=== PATIENT | male | born 1955 | race American Indian/Alaskan Native ===

== ENCOUNTER 2017-09-04 22:03 | Inpatient (IN) | payer OTHER ==
[2017-09-04] MEDS ORDERED: NARCAN 2 MG/2 ML ONE (22:07)
[2017-09-04] MEDS ORDERED: ZOFRAN ONE (22:09)
--- NOTE | 2017-09-04 22:48 | XRay Report ---
FINAL REPORT PROCEDURE: XR CHEST 1V AP TECHNIQUE: Chest radiograph anteroposterior view. CPT 18127 HISTORY: sob COMPARISON: No prior studies are available for comparison. FINDINGS: Heart: Normal. Mediastinum/Vessels: Normal. Lungs/Pleural space: Moderate COPD with fibrosis. No effusion or pneumothorax. Bony thorax: No acute osseous abnormality. Life support devices: None. IMPRESSION: COPD with fibrosis. No acute infiltrate, effusion or pneumothorax.
[2017-09-04 22:52] LABS: Hematocrit 47.1 % (35.5-45.6); Hemoglobin 15.4 gm/dl (11.8-15.2); Mean Corpuscular HGB Conc 33 % (32-34); Mean Corpuscular Hemoglobin 31 pg (28-32); Mean Corpuscular Volume 94 fl (84-94); Platelet Count 284 K/mm3 (140-440); Red Cell Distribution Width 14.6 % (13.2-15.2)
--- NOTE | 2017-09-04 22:59 | Emergency Department Report ---
ED General Adult HPI - General Chief complaint: Overdose Stated complaint: RESPIRATORY DISTRESS Time Seen by Provider: 09/04/17 22:14 Source: EMS Mode of arrival: Stretcher Limitations: Altered Mental Status - History of Present Illness Initial comments: Patient presents to emergency department via EMS for severe respiratory distress. Per EMS upon their arrival to patient's oxygenation level was approximately 68%. Patient was ventilated and in route an attempt was made to intubate the patient without success. Per EMS the patient's family stated he was just recently diagnosed with some lung condition. Severity scale (0 -10): 0 - Related Data Allergies Allergy/AdvReac Type Severity Reaction Status Date / Time No Known Allergies Allergy Unverified 09/04/17 22:17 ED Review of Systems ROS: Stated complaint: RESPIRATORY DISTRESS Other details as noted in HPI Comment: Unobtainable due to pts medical conditions ED Past Medical Hx - Past Medical History Hx Hypertension: Yes Hx COPD: Yes - Surgical History Past Surgical History?: No - Social History Smoking Status: Current Every Day Smoker Substance Use Type: Alcohol ED Physical Exam - General Limitations: Altered Mental Status General appearance: obtunded - Head Head exam: Present: atraumatic, normocephalic - Eye Eye exam: Present: normal appearance, PERRL, EOMI, other (pupils were pinpoint but reactive to light) Pupils: Present: normal accommodation - ENT ENT exam: Present: mucous membranes dry - Neck Neck exam: Present: other (no carotid bruits, supple) - Respiratory Respiratory exam: Present: wheezes - Cardiovascular Cardiovascular Exam: Present: regular rate, normal rhythm - GI/Abdominal GI/Abdominal exam: Present: soft, normal bowel sounds. Absent: distended, guarding, rebound - Extremities Exam Extremities exam: Absent: pedal edema - Neurological Exam Neurological exam: Present: other (initially patient was obtunded and thus neurological exam could not be completed) - Psychiatric Psychiatric exam: Present: other (not able to assess due to the patient's condition) - Skin Skin exam: Present: dry ED Course Vital Signs 09/04/17 09/04/17 09/04/17 22:00 22:10 22:17 Temperature Pulse Rate 101 H 101 H 99 H Respiratory 27 H 24 17 Rate Blood Pressure 162/103 154/93 Blood Pressure [Right] O2 Sat by Pulse 96 98 Oximetry 09/04/17 09/04/17 09/04/17 22:20 22:26 22:29 Temperature 98.9 F Pulse Rate 97 H 84 99 H Respiratory 24 17 17 Rate Blood Pressure 154/93 154/93 Blood Pressure 154/93 [Right] O2 Sat by Pulse 90 80 L 99 Oximetry 09/04/17 09/04/17 09/04/17 22:30 22:32 22:36 Temperature Pulse Rate 75 81 Respiratory 18 16 23 Rate Blood Pressure 136/68 136/68 Blood Pressure [Right] O2 Sat by Pulse 100 100 Oximetry 09/04/17 09/04/17 09/04/17 22:40 22:45 22:50 Temperature Pulse Rate 82 78 77 Respiratory 25 H 12 22 Rate Blood Pressure 136/68 144/75 144/75 Blood Pressure [Right] O2 Sat by Pulse 100 100 100 Oximetry 09/04/17 09/04/17 09/04/17 22:56 23:00 23:06 Temperature Pulse Rate 79 92 H 81 Respiratory 21 14 18 Rate Blood Pressure 144/75 141/88 141/88 Blood Pressure [Right] O2 Sat by Pulse 100 100 100 Oximetry 09/04/17 09/04/17 09/04/17 23:10 23:15 23:20 Temperature Pulse Rate 88 114 H 78 Respiratory 17 11 L 19 Rate Blood Pressure 141/88 133/74 133/74 Blood Pressure [Right] O2 Sat by Pulse 100 100 100 Oximetry 09/04/17 09/04/17 09/04/17 23:26 23:30 23:36 Temperature Pulse Rate 83 104 H 83 Respiratory 18 15 21 Rate Blood Pressure 133/74 131/74 131/74 Blood Pressure [Right] O2 Sat by Pulse 100 100 100 Oximetry 09/04/17 09/04/17 09/04/17 23:40 23:45 23:50 Temperature Pulse Rate 85 82 82 Respiratory 14 17 16 Rate Blood Pressure 131/74 124/71 124/71 Blood Pressure [Right] O2 Sat by Pulse 100 100 100 Oximetry 09/04/17 09/05/17 09/05/17 23:56 00:00 00:06 Temperature Pulse Rate 75 74 70 Respiratory 17 22 19 Rate Blood Pressure 124/71 124/69 124/69 Blood Pressure [Right] O2 Sat by Pulse 100 100 100 Oximetry 09/05/17 09/05/17 09/05/17 00:10 00:15 00:20 Temperature Pulse Rate 78 70 84 Respiratory 17 15 19 Rate Blood Pressure 124/69 121/70 121/70 Blood Pressure [Right] O2 Sat by Pulse 100 100 100 Oximetry 09/05/17 09/05/17 09/05/17 00:26 00:30 00:36 Temperature Pulse Rate 80 74 80 Respiratory 15 14 14 Rate Blood Pressure 121/70 127/68 127/68 Blood Pressure [Right] O2 Sat by Pulse 100 100 100 Oximetry 09/05/17 09/05/17 09/05/17 00:40 00:45 00:50 Temperature Pulse Rate 69 81 80 Respiratory 25 H 19 18 Rate Blood Pressure 127/68 126/75 126/75 Blood Pressure [Right] O2 Sat by Pulse 100 100 100 Oximetry 09/05/17 09/05/17 09/05/17 00:56 01:00 01:10 Temperature Pulse Rate 81 80 74 Respiratory 26 H 22 18 Rate Blood Pressure 126/75 134/75 134/75 Blood Pressure [Right] O2 Sat by Pulse 100 100 100 Oximetry 09/05/17 09/05/17 09/05/17 01:20 01:30 01:40 Temperature Pulse Rate 86 93 H 83 Respiratory 13 12 13 Rate Blood Pressure 128/74 121/79 121/79 Blood Pressure [Right] O2 Sat by Pulse 99 96 99 Oximetry 09/05/17 09/05/17 09/05/17 01:50 01:56 02:00 Temperature Pulse Rate 91 H 87 86 Respiratory 13 23 12 Rate Blood Pressure 121/68 121/68 119/71 Blood Pressure [Right] O2 Sat by Pulse 99 99 97 Oximetry 09/05/17 09/05/17 09/05/17 02:06 02:10 02:15 Temperature Pulse Rate 90 88 82 Respiratory 12 15 23 Rate Blood Pressure 119/71 119/71 125/72 Blood Pressure [Right] O2 Sat by Pulse 100 100 99 Oximetry 09/05/17 09/05/17 09/05/17 02:20 02:26 02:30 Temperature Pulse Rate 84 77 75 Respiratory 17 21 21 Rate Blood Pressure 125/72 125/72 110/64 Blood Pressure [Right] O2 Sat by Pulse 99 99 96 Oximetry 09/05/17 09/05/17 09/05/17 02:36 02:40 02:45 Temperature Pulse Rate 80 90 105 H Respiratory 16 12 12 Rate Blood Pressure 110/64 110/64 131/85 Blood Pressure [Right] O2 Sat by Pulse 100 100 95 Oximetry 09/05/17 02:50 Temperature Pulse Rate 91 H Respiratory 14 Rate Blood Pressure 131/85 Blood Pressure [Right] O2 Sat by Pulse 100 Oximetry ED Medical Decision Making - Lab Data Result diagrams: 09/04/17 22:28 09/04/17 22:28 - Medical Decision Making Upon arrival to the ED the patient was placed on a cardiac and pulse ox monitoring Patient was bagged with supplemental oxygen A nasal trumpet was placed Patient was given Narcan After given Narcan there was some arousal Oxygen levels improved with bagging. Patient was placed on a Ventimask and sats have remained greater than 94 since Neurological exam was done after sufficient oxygenation on the patient with cranial nerves being intact 2 through 12, no motor or sensory deficits Patient endorses to drinking alcohol today and smoking several cigarettes Spoke with Dr. Warren at 3:14 AM on 09/05/2017. I was given permission to keep the patient at our facility and there is no need to transfer the patient to [facility] Critical care attestation.: If time is entered above; I have spent that time in minutes in the direct care of this critically ill patient, excluding procedure time. ED Disposition Clinical Impression: Hypoxia, Respiratory distress Disposition: DC-09 OP ADMIT IP TO THIS HOSP Is pt being admited?: Yes Does the pt Need Aspirin: No Condition: Fair Referrals: JONNA ROSEN MD [Primary Care Provider] - 3-5 Days Time of Disposition: 01:58
[2017-09-04 23:14] LABS: Bilirubin,Urine NEG (Negative); Blood,Urine SM (Negative); Color,Urine Straw (Yellow); Protein,Urine <15 mg/dL mg/dL (Negative); RBC,Urine < 1.0 /HPF (0.0-6.0); Urobilinogen,Urine < 2.0 mg/dL (<2.0); WBC,Urine < 1.0 /HPF (0.0-6.0)
[2017-09-04 23:20] LABS: Alanine Aminotransferase 16 units/L (7-56); Albumin 3.6 g/dL (3.9-5); BUN/Creatinine Ratio 14; Blood Urea Nitrogen 10 mg/dL (9-20); Calcium 8.6 mg/dL (8.4-10.2); Hemolysis Index 46
[2017-09-04 23:22] LABS: Amphetamine Screen,Urine PRESUMPTIVE NEGATIVE; Benzodiazepines Screen,Urine PRESUMPTIVE NEGATIVE; Cannabinoid Screen,Urine PRESUMPTIVE NEGATIVE; Cocaine Screen,Urine PRESUMPTIVE NEGATIVE; Methadone Screen,Urine PRESUMPTIVE NEGATIVE; Opiate Screen,Urine PRESUMPTIVE NEGATIVE
[2017-09-04 23:55] LABS: Band Neutrophils # (Manual) 0.1 K/mm3; Basophils % (Manual) 0 % (0.0-1.8); Total Cells Counted 100
[2017-09-04 23:56] LABS: Anisocytosis 1+; Stomatocytes Few
[2017-09-05] MEDS ORDERED: ZOFRAN IV ONE (01:43)
[2017-09-05] MEDS ORDERED: NARCAN 2 MG/2 ML IV ONE (01:43)
[2017-09-05] MEDS ORDERED: LEVAQUIN 750MG/150ML 750 MG/150 ML BAG IV ONE (02:13)
[2017-09-05] MEDS ORDERED: TYLENOL PO PRN (03:44)
[2017-09-05] MEDS ORDERED: ZOFRAN IV PRN (03:44)
[2017-09-05] MEDS ORDERED: SODIUM CHLORIDE FLUSH SYRINGE 10 ML IV PRN (03:44)
--- NOTE | 2017-09-05 03:53 | History and Physical Report ---
History of Present Illness Date of examination: 09/05/17 History of present illness: Juan Daniel Pemberton history of hypertension, COPD since emergency room because he complained of shortness of breath yesterday. EMS was called to his bowels, he was found to be in respiratory distress with a saturation in the 60s. EMS tried to intubate him in the field without success. In the emergency room he was given Narcan, placed on high flow oxygen, currently doing well. Pain of a cough productive of white phlegm, no fever or chills. He has pain on the side of the lateral thoracic region, described as a sharp pain, intermittent in nature for a few seconds, no radiation, cannot identify exacerbating or relieving factors, intensity/10 Review of systems Constitutional: no weight loss, chills Ears, eyes, nose, mouth and throat: no nasal congestion, no nasal discharge, no sinus pressure, no vision change, no red eye. Neck: No neck pain or rigidity. Cardiovascular: no chest pain, palpitations Respiratory: +cough, shortness of breath Gastrointestinal: no abdominal pain, hematochezia Genitourinary : no dysuria, frequency , no hematuria Musculoskeletal: no joint swelling or muscle ache Integumentary: no rash, no pruritis Neurological: no parathesias, no numbness, no focal weakness Endocrine: no cold or heat intolerance, no polyuria or polydipsia Hematologic/Lymphatic: no easy bruising, no easy bleeding, no gland swelling Allergic/Immunologic: no urticaria, no angioedema. PAST MEDICAL HISTORY: Hypertension, COPD PAST SURGICAL HISTORY: Foot surgery SOCIAL HISTORY: Tobacco abuse, denies alcohol or drugs FAMILY HISTORY: Hypertension Medications and Allergies Allergies Allergy/AdvReac Type Severity Reaction Status Date / Time No Known Allergies Allergy Unverified 09/04/17 22:17 Exam - Physical Exam Narrative exam: Gen. appearance: Patient lying in bed, no apparent distress HEENT: Normocephalic, atraumatic, pupils equally round and reactive to light, extraocular movement intact, and no sclericterus,. No JVD or thyromegaly or nodule,neck supple, no carotid bruit ,mucous membranes moist, no exudate or erythema Heart: S1, S2, regular rate and rhythm Lungs: Clear to auscultation bilaterally, breathing comfortable Abdomen: Positive bowel sounds, nontender, nondistended, no organomegaly Extremity: No edema, cyanosis, clubbing Skin: No rash, nodules, warm, dry Neuro: Oriented 3, cranial nerves II-12 intact, speech is fluent, motor and sensory intact - Constitutional Vitals: Temp Pulse Resp BP Pulse Ox 98.9 F 106 H 11 L 116/73 96 09/04/17 22:29 09/05/17 03:20 09/05/17 03:20 09/05/17 03:20 09/05/17 03:20 Results - Labs CBC & Chem 7: 09/04/17 22:28 09/04/17 22:28 Labs: Abnormal lab results 09/04/17 09/04/17 09/04/17 Range/Units 22:28 22:28 22:29 WBC 11.5 H (4.5-11.0) K/mm3 Hgb 15.4 H (11.8-15.2) gm/dl Hct 47.1 H (35.5-45.6) % Seg Neutrophils # Man 8.1 H (1.8-7.7) K/mm3 Eosinophils # (Manual) 0.5 H (0.0-0.4) K/mm3 Sodium 133 L (137-145) mmol/L Chloride 95.4 L (98-107) mmol/L Carbon Dioxide 20 L (22-30) mmol/L Creatinine 0.7 L (0.8-1.5) mg/dL Albumin 3.6 L (3.9-5) g/dL Ur Specific [place] 1.001 L (1.003-1.030) - Imaging and Cardiology EKG: image reviewed Chest x-ray: image reviewed Assessment and Plan Assessment COPD exacerbation, rule out PE Hypertension Plan Admit to medicine Start high-dose steroids, nebulizer treatments Check d-dimer,cardiac enzymes, DVT prophylaxis
[2017-09-05 04:44] LABS: Creatine Kinase MB 2.8 ng/mL (0.0-4.0)
[2017-09-05 09:25] LABS: Creatine Kinase MB 2.7 ng/mL (0.0-4.0)
[2017-09-05] MEDS: DUONEB *Not for PRN Use IH SCH ×3 (11:38→19:52)
[2017-09-05] MEDS: SODIUM CHLORIDE FLUSH SYRINGE 10 ML IV SCH ×2 (12:54→22:21)
[2017-09-05] MEDS: LOVENOX SUB-Q SCH (12:54)
[2017-09-06] MEDS: DUONEB *Not for PRN Use IH SCH ×4 (07:41→21:02)
[2017-09-06] MEDS: SODIUM CHLORIDE FLUSH SYRINGE 10 ML IV SCH ×2 (11:17→21:58)
[2017-09-06] MEDS: LOVENOX SUB-Q SCH (11:17)
[2017-09-06 13:12] LABS: Mean Corpuscular HGB Conc 33 % (32-34); Mean Corpuscular Hemoglobin 31 pg (28-32); Mean Corpuscular Volume 93 fl (84-94); Platelet Count 275 K/mm3 (140-440); Red Blood Count 4.53 M/mm3 (3.65-5.03); Red Cell Distribution Width 14.8 % (13.2-15.2)
[2017-09-06 13:26] LABS: BUN/Creatinine Ratio 22; Blood Urea Nitrogen 13 mg/dL (9-20); Calcium 8.8 mg/dL (8.4-10.2); Hemolysis Index 5
[2017-09-06 14:25] LABS: Anisocytosis 1+; Basophils % (Manual) 0 % (0.0-1.8); Eosinophils % (Manual) 0 % (0.0-4.3); Platelet Estimate Consistent w Auto; Total Cells Counted 200
--- NOTE | 2017-09-06 16:55 | Progress Note ---
Assessment and Plan Assessment and plan: 61 m who was having beer and cigarettes with freinds when he started having sob COPD exacerbation, steroids, nebs, oxygen, pulmonology consult, will need control meds at time of dc (spiriva and symbicort), only has ventolin at home ddimer was negative, no further PE workup indicated acute hypoxic respiratory failure; resolving; much improved, weaned off oxygen today Hypertension; resume home meds nicotine dependence; counseled on cessation; nicotine patch History Interval history: sob is much improved dry cough no cp, no palpitations, no fever Hospitalist Physical - Constitutional Vitals: Temp Pulse Resp BP Pulse Ox 97.9 F 82 20 131/88 96 09/06/17 07:30 09/06/17 09:21 09/06/17 09:21 09/06/17 07:30 09/06/17 07:30 General appearance: Present: no acute distress - EENT Eyes: Present: PERRL ENT: hearing intact - Neck Neck: Present: supple - Respiratory Respiratory effort: normal Respiratory: bilateral: wheezing - Cardiovascular Rhythm: regular Heart Sounds: Present: S1 & S2 - Extremities Extremities: no ischemia - Abdominal General gastrointestinal: soft, non-tender - Integumentary Integumentary: Present: clear, warm - Psychiatric Psychiatric: appropriate mood/affect - Neurologic Neurologic: CNII-XII intact, moves all extremities Results - Labs CBC & Chem 7: 09/06/17 12:04 09/06/17 12:04 Labs: Laboratory Last Values WBC 23.2 K/mm3 (4.5-11.0) H 09/06/17 12:04 RBC 4.53 M/mm3 (3.65-5.03) 09/06/17 12:04 Hgb 14.0 gm/dl (11.8-15.2) 09/06/17 12:04 Hct 42.0 % (35.5-45.6) 09/06/17 12:04 MCV 93 fl (84-94) 09/06/17 12:04 MCH 31 pg (28-32) 09/06/17 12:04 MCHC 33 % (32-34) 09/06/17 12:04 RDW 14.8 % (13.2-15.2) 09/06/17 12:04 Plt Count 275 K/mm3 (140-440) 09/06/17 12:04 [place] % (Auto) Needle Maker 09/04/17 22:28 Add Manual Diff Complete 09/06/17 12:04 Total Counted 200 09/06/17 12:04 Seg Neutrophils % Needle Maker 09/06/17 12:04 Seg Neuts % (Manual) 93.0 % (40.0-70.0) H 09/06/17 12:04 Band Neutrophils % 0 % 09/06/17 12:04 Lymphocytes % (Manual) 3.0 % (13.4-35.0) L 09/06/17 12:04 Reactive Lymphs % (Man) 0 % 09/06/17 12:04 Monocytes % (Manual) 4.0 % (0.0-7.3) 09/06/17 12:04 Eosinophils % (Manual) 0 % (0.0-4.3) 09/06/17 12:04 Basophils % (Manual) 0 % (0.0-1.8) 09/06/17 12:04 Metamyelocytes % 0 % 09/06/17 12:04 Myelocytes % 0 % 09/06/17 12:04 Promyelocytes % 0 % 09/06/17 12:04 Blast Cells % 0 % 09/06/17 12:04 Nucleated RBC % Not Reportable 09/06/17 12:04 Seg Neutrophils # Man 21.6 K/mm3 (1.8-7.7) H 09/06/17 12:04 Band Neutrophils # 0.0 K/mm3 09/06/17 12:04 Lymphocytes # (Manual) 0.7 K/mm3 (1.2-5.4) L 09/06/17 12:04 Abs React Lymphs (Man) 0.0 K/mm3 09/06/17 12:04 Monocytes # (Manual) 0.9 K/mm3 (0.0-0.8) H 09/06/17 12:04 Eosinophils # (Manual) 0.0 K/mm3 (0.0-0.4) 09/06/17 12:04 Basophils # (Manual) 0.0 K/mm3 (0.0-0.1) 09/06/17 12:04 Metamyelocytes # 0.0 K/mm3 09/06/17 12:04 Myelocytes # 0.0 K/mm3 09/06/17 12:04 Promyelocytes # 0.0 K/mm3 09/06/17 12:04 Blast Cells # 0.0 K/mm3 09/06/17 12:04 WBC Morphology Not Reportable 09/06/17 12:04 Hypersegmented Neuts Not Reportable 09/06/17 12:04 Hyposegmented Neuts Not Reportable 09/06/17 12:04 Hypogranular Neuts Not Reportable 09/06/17 12:04 Smudge Cells Not Reportable 09/06/17 12:04 Toxic Granulation Not Reportable 09/06/17 12:04 Toxic Vacuolation Not Reportable 09/06/17 12:04 Dohle Bodies Not Reportable 09/06/17 12:04 Pelger-Huet Anomaly Not Reportable 09/06/17 12:04 Babak Rods Not Reportable 09/06/17 12:04 Platelet Estimate Consistent w auto 09/06/17 12:04 Clumped Platelets Not Reportable 09/06/17 12:04 Plt Clumps, EDTA Not Reportable 09/06/17 12:04 Large Platelets Not Reportable 09/06/17 12:04 Giant Platelets Not Reportable 09/06/17 12:04 Platelet Satelliting Not Reportable 09/06/17 12:04 Plt Morphology Comment Not Reportable 09/06/17 12:04 RBC Morphology Not Reportable 09/06/17 12:04 Dimorphic RBCs Not Reportable 09/06/17 12:04 Polychromasia Not Reportable 09/06/17 12:04 Hypochromasia Not Reportable 09/06/17 12:04 Poikilocytosis Not Reportable 09/06/17 12:04 Anisocytosis 1+ 09/06/17 12:04 Microcytosis Not Reportable 09/06/17 12:04 Macrocytosis Not Reportable 09/06/17 12:04 Spherocytes Not Reportable 09/06/17 12:04 Pappenheimer Bodies Not Reportable 09/06/17 12:04 Sickle Cells Not Reportable 09/06/17 12:04 Target Cells Not Reportable 09/06/17 12:04 Tear Drop Cells Not Reportable 09/06/17 12:04 Ovalocytes Not Reportable 09/06/17 12:04 Stomatocytes Few 09/04/17 22:28 Helmet Cells Not Reportable 09/06/17 12:04 [place] Bodies Not Reportable 09/06/17 12:04 Gobler Rings Not Reportable 09/06/17 12:04 [place] Cells Not Reportable 09/06/17 12:04 Bite Cells Not Reportable 09/06/17 12:04 Crenated Cell Not Reportable 09/06/17 12:04 Elliptocytes Not Reportable 09/06/17 12:04 Acanthocytes (Spur) Not Reportable 09/06/17 12:04 Rouleaux Not Reportable 09/06/17 12:04 Hemoglobin C Crystals Not Reportable 09/06/17 12:04 Schistocytes Not Reportable 09/06/17 12:04 Malaria parasites Not Reportable 09/06/17 12:04 Thien Bodies Not Reportable 09/06/17 12:04 Hem Pathologist Commnt No 09/06/17 12:04 D-Dimer < 135 ng/mlDDU (0-234) 09/05/17 03:50 Sodium 138 mmol/L (137-145) 09/06/17 12:04 Potassium 3.8 mmol/L (3.6-5.0) 09/06/17 12:04 Chloride 98.4 mmol/L (98-107) 09/06/17 12:04 Carbon Dioxide 25 mmol/L (22-30) 09/06/17 12:04 Anion Gap 18 mmol/L 09/06/17 12:04 BUN 13 mg/dL (9-20) 09/06/17 12:04 Creatinine 0.6 mg/dL (0.8-1.5) L 09/06/17 12:04 Estimated GFR > 60 ml/min 09/06/17 12:04 BUN/Creatinine Ratio 22 % 09/06/17 12:04 Glucose 142 mg/dL (75-100) H 09/06/17 12:04 Calcium 8.8 mg/dL (8.4-10.2) 09/06/17 12:04 Total Bilirubin 0.20 mg/dL (0.1-1.2) 09/04/17 22:28 AST 24 units/L (5-40) 09/04/17 22:28 ALT 16 units/L (7-56) 09/04/17 22:28 Alkaline Phosphatase 77 units/L (35-129) 09/04/17 22:28 Total Creatine Kinase 117 units/L (55-170) 09/05/17 08:54 CK-MB (CK-2) 2.7 ng/mL (0.0-4.0) 09/05/17 08:54 CK-MB (CK-2) Rel Index 2.3 (0-4) 09/05/17 08:54 Troponin T < 0.010 ng/mL (0.00-0.029) 09/05/17 08:54 NT-Pro-B Natriuret Pep 20.66 pg/mL (0-900) 09/04/17 22: Total Protein 6.7 g/dL (6.3-8.2) 09/04/17: Albumin 3.6 g/dL (3.9-5) L 09/04/17: Albumin/Globulin Ratio 1.2 % 09/04/17: Urine Color Straw (Yellow) 09/04/17: Urine Turbidity Clear (Clear) 09/04/17: Urine pH 6.0 (5.0-7.0) 09/04/17: Ur Specific [place] 1.001 (1.003-1.030) L 09/04/17: Urine Protein <15 mg/dl mg/dL (Negative) 09/04/17: Urine Glucose (UA) Neg mg/dL (Negative) 09/04/17: Urine Ketones Neg mg/dL (Negative) 09/04/17 22: Urine Blood Sm (Negative) 09/04/17: Urine Nitrite Neg (Negative) 09/04/17: Urine Bilirubin Neg (Negative) 09/04/17: Urine Urobilinogen < 2.0 mg/dL (<2.0) 09/04/17: Ur Leukocyte Esterase Neg (Negative) 09/04/17: Urine WBC (Auto) < 1.0 /HPF (0.0-6.0) 09/04/17 22: Urine RBC (Auto) < 1.0 /HPF (0.0-6.0) 09/04/17 22: Urine Opiates Screen Presumptive negative 09/04/17 22: Urine Methadone Screen Presumptive negative 09/04/17: Ur Barbiturates Screen Presumptive negative 09/04/17 22:29 Ur Phencyclidine Scrn Presumptive negative 09/04/17 22:29 Ur Amphetamines Screen Presumptive negative 09/04/17 22:29 U Benzodiazepines Scrn Presumptive negative 09/04/17 22:29 Urine Cocaine Screen Presumptive negative 09/04/17 22:29 U Marijuana (THC) Screen Presumptive negative 09/04/17 22:29 Drugs of Abuse Note Disclamer 09/04/17 22:29
[2017-09-06] MEDS ORDERED: HABITROL TD SCH (21:00)
[2017-09-07] MEDS: DUONEB *Not for PRN Use IH SCH ×3 (03:05→14:00)
[2017-09-07] MEDS: BROVANA NEBU IH SCH ×2 (07:46→18:41)
[2017-09-07] MEDS: PULMICORT IH SCH ×2 (07:46→18:41)
[2017-09-07] MEDS ORDERED: HCTZ PO SCH (10:00)
[2017-09-07] MEDS ORDERED: ZESTRIL PO SCH (10:00)
[2017-09-07] MEDS: LOVENOX SUB-Q SCH (10:21)
[2017-09-07 13:10] VITALS: BP 138/86
--- NOTE | 2017-09-07 15:30 | Consultation ---
History of Present Illness Consult date: 09/07/17 Requesting physician: DIAMOND CUADRA Reason for consult: COPD History of present illness: PULMONARY/CCM CONSULT NOTE (full dictation # [id number]) Please see dictated notes for full details Medications and Allergies Allergies Allergy/AdvReac Type Severity Reaction Status Date / Time No Known Allergies Allergy Unverified 09/04/17 22:17 Home Medications Medication Instructions Recorded Confirmed Last Taken Type Hydrochlorothiazide 25 mg PO QDAY 09/06/17 09/06/17 Unknown History Lisinopril [Zestril] 20 mg PO QDAY 09/06/17 09/06/17 Unknown History Budesoni/Formotero 160-4.5(Nf) 2 puff IH BID #1 inha 09/07/17 Unknown Rx [Symbicort 160-4.5 (Nf)] Ipratropium/Albuterol Sulfate 1 ampul IH Q6HRT #100 ampul.neb 09/07/17 Unknown Rx [DUONEB *Not for PRN Use*] Losartan [Cozaar] 100 mg PO QDAY #30 tablet 09/07/17 Unknown Rx Nicotine [Habitrol] 7 mg TD Q24H #14 patch 09/07/17 Unknown Rx Tiotropium [place] [Spiriva 4 gm IH QDAY #1 mist.inhal 09/07/17 Unknown Rx Respimat] prednisoLONE [Millipred Dp] 20 mg PO QDAY #7 tab 09/07/17 Unknown Rx Active Meds: Active Medications Acetaminophen (Tylenol) 650 mg PO Q4H PRN PRN Reason: Pain MILD(1-3)/Fever >100.5/MAGANA Albuterol/Ipratropium (Duoneb *Not For Prn Use*) 1 ampul IH Q6HRT [facility] Last Admin: 09/07/17 14:00 Dose: 1 ampul Arformoterol Tartrate (Brovana Nebu) 15 mcg IH Q12HRT [facility] Last Admin: 09/07/17 07:46 Dose: 15 mcg Budesonide (Pulmicort) 0.25 mg IH Q12HRT [facility] Last Admin: 09/07/17 07:46 Dose: 0.25 mg Enoxaparin Sodium (Lovenox) 40 mg SUB-Q QDAY [facility] Last Admin: 09/07/17 10:21 Dose: 40 mg Hydrochlorothiazide (Hctz) 25 mg PO QDAY [facility] Last Admin: 09/07/17 10:22 Dose: 25 mg Lisinopril (Zestril) 20 mg PO QDAY [facility] Last Admin: 09/07/17 10:22 Dose: 20 mg Methylprednisolone Sodium Succinate (Solu-Medrol) 125 mg IV Q6HR [facility] Last Admin: 09/07/17 06:13 Dose: 125 mg Nicotine (Habitrol) 7 mg TD Q24H [facility] Last Admin: 09/06/17 21:58 Dose: 7 mg Ondansetron HCl (Zofran) 4 mg IV Q4H PRN PRN Reason: Nausea And Vomiting Sodium Chloride (Sodium Chloride Flush Syringe 10 Ml) 10 ml IV BID [facility] Last Admin: 09/06/17 21:58 Dose: 10 ml Sodium Chloride (Sodium Chloride Flush Syringe 10 Ml) 10 ml IV PRN PRN PRN Reason: LINE FLUSH Physical Examination Vital signs: Vital Signs Pulse Resp Pulse Ox 101 H 27 H 96 09/04/17 22:00 09/04/17 22:00 09/04/17 22:00 Results - Laboratory Findings CBC and BMP: 09/06/17 12:04 09/06/17 12:04 PT/INR, D-dimer D-Dimer < 135 ng/mlDDU (0-234) 09/05/17 03:50 Abnormal lab findings: Abnormal Labs 09/04/17 09/04/17 09/04/17 22:28 22:28 22:29 WBC 11.5 H Hgb 15.4 H Hct 47.1 H Seg Neuts % (Manual) Lymphocytes % (Manual) Seg Neutrophils # Man 8.1 H Lymphocytes # (Manual) Monocytes # (Manual) Eosinophils # (Manual) 0.5 H Sodium 133 L Chloride 95.4 L Carbon Dioxide 20 L Creatinine 0.7 L Glucose Albumin 3.6 L Ur Specific [place] 1.001 L 09/06/17 09/06/17 12:04 12:04 WBC 23.2 H Hgb Hct Seg Neuts % (Manual) 93.0 H Lymphocytes % (Manual) 3.0 L Seg Neutrophils # Man 21.6 H Lymphocytes # (Manual) 0.7 L Monocytes # (Manual) 0.9 H Eosinophils # (Manual) Sodium Chloride Carbon Dioxide Creatinine 0.6 L Glucose 142 H Albumin Ur Specific [place]
--- NOTE | 2017-09-07 17:14 | Discharge Summary ---
Providers - Providers Date of Admission: 09/05/17 03:44 Date of discharge: 09/07/17 Attending physician: ANTONY ARANDA 09/06/17 20:02 Consult to Physician [CONS] Routine Comment: Consulting Provider: KAELYN GILL Physician Instructions: Reason For Exam: copd Primary care physician: JONNA ROSEN Hospitalization Condition: Fair Hospital course: Assessment and Plan Assessment and plan: 61 m who was having beer and cigarettes with freinds when he started having sob COPD exacerbation--improved -back to baseline. ddimer was negative, no further PE workup indicated acute hypoxic respiratory failure; resolving; much improved, weaned off oxygen yesterday Hypertension; resume home meds Nicotine dependence; counseled on cessation; nicotine patch Disposition: DC-01 TO HOME OR SELFCARE Time spent for discharge: 31 min Core Measure Documentation - Palliative Care Palliative Care/ Comfort Measures: Not Applicable - Core Measures Any of the following diagnoses?: none Exam - Constitutional Vitals: Temp Pulse Resp BP Pulse Ox 97.6 F 108 H 20 138/86 97 09/07/17 11:29 09/07/17 14:11 09/07/17 14:11 09/07/17 11:29 09/07/17 11:29 General appearance: Present: no acute distress, well-nourished - EENT Eyes: Present: PERRL ENT: hearing intact, clear oral mucosa - Neck Neck: Present: supple, normal ROM - Respiratory Respiratory effort: normal Respiratory: bilateral: CTA - Cardiovascular Heart rate: 76 Rhythm: regular Heart Sounds: Present: S1 & S2. Absent: rub, click - Extremities Extremities: no ischemia, pulses symmetrical, No edema Peripheral Pulses: within normal limits - Abdominal General gastrointestinal: Present: soft, non-tender, non-distended, normal bowel sounds Male genitourinary: Present: normal - Integumentary Integumentary: Present: clear, warm, dry - Musculoskeletal Musculoskeletal: gait normal, strength equal bilaterally - Psychiatric Psychiatric: appropriate mood/affect, intact judgment & insight - Neurologic Neurologic: CNII-XII intact, moves all extremities - Allied Health Allied health notes reviewed: nursing, case management Plan Activity: no restrictions Weight Bearing Status: Full Weight Bearing Diet: low salt Follow up with: JONNA ROSEN MD [Primary Care Provider] - 3-5 Days PRIMARY CARE, [Referring] - 7 Days
[2017-09-07] MEDS ORDERED: ZITHROMAX PO SCH (19:00)
--- NOTE | 2017-09-08 11:00 | Consultation ---
CONSULTING PHYSICIAN: Dr. Becker. REASON FOR CONSULTATION: COPD exacerbation. CHIEF COMPLAINT AND HISTORY OF PRESENT ILLNESS: The patient is an -[place] male, 61-year-old, with past medical history significant amongst other things for a diagnosis of COPD, not on home oxygen, came in to the Emergency Room complaining of shortness of breath. He was found to be hypoxemic, O2 sats in the 60s. They apparently tried to intubate him unsuccessfully in the field. In the Emergency Room, he was given Narcan and placed on high flow oxygen. His shortness of breath improved. He did complain of a cough productive of whitish phlegm. Denied any gross or streaky hemoptysis. He denied any significant baseline chronic phlegm production. Denied any acute chest pains or palpitations. Denied any new onset leg pain or swelling, either unilaterally or bilaterally or any suggestion of venous thromboembolic phenomenon/DVT. He admits to continued tobacco use. He does have almost 20+ pack year tobacco smoking history. He tells me these days, he smokes about half a pack of cigarettes a day. Denied any sick contacts. He is on a home bronchodilator, short acting, but is not on any long acting. He does say he sees a interchange agent in the outpatient setting. Did not remember his name. When I stopped by to see him, he was sitting on the side of the bed, on supplemental oxygen, feeling a little bit better, still with some shortness of breath and dyspnea on exertion. He denied orthopnea. This really is as much of the history of presentation as I have. PAST MEDICAL HISTORY: Hypertension, COPD, tobacco use disorder. PAST SURGICAL HISTORY: He has had surgery on his foot. MEDICATIONS: He was on at the time I stopped by to see him were reviewed, pertinent medications include the following: DuoNeb treatments nebulized q. 6 hours, Brovana 15 mcg inhaled q.12h., Pulmicort 0.25 mg inhaled q.12h., Lovenox 40 mg subcutaneous daily, Zestril 20 mg p.o. daily, hydrochlorothiazide 25 mg p.o. daily, Solu-Medrol 125 mg IV q.6h., nicotine patch, Zofran p.r.n. ALLERGIES: No known drug allergies. DIET: Well-built gentleman on the thin side. Denies acute weight loss or gain preceding few weeks to months. FAMILY AND SOCIAL HISTORY: He does have a 20+ pack year tobacco smoking history. Denies alcohol or illicit drug use or abuse. There is a family history of hypertension. REVIEW OF SYSTEMS: No loss of consciousness. No new onset seizures. No new onset focal weakness. Denies gross hematochezia or melena, gross hematuria or dysuria. Denies any neck pain or rigidity. Denies chest pains or palpitations. He did have the cough. He had the shortness of breath. He had the dyspnea on exertion. Denied any polyuria, polydipsia. Denied easy bruising or easy bleeding. Denied any new rash. Denied any new lumps on his body or bumps on his body. Complete 13-system review of systems obtained. Pertinent positives and/or negatives as in body of history above, otherwise they are noncontributory. PHYSICAL EXAMINATION: VITAL SIGNS: At presentation in the Emergency Room, review of vital signs shows that he was essentially afebrile, temperature was 98.9 degrees Fahrenheit with a pulse of 99, respiratory rate of 17, blood pressure 154/93, oxygen sats were initially 80%, inspired oxygen concentration was not recorded. He has remained afebrile through this admission. GENERAL: He was well-built -[place] male, looks his stated age, normocephalic, atraumatic, talking to me in full sentences, in mild respiratory distress. HEAD, EYES, EARS, NOSE AND THROAT: Anicteric, no conjunctival erythema. Oropharynx was Mallampati #2. Oropharynx was moist. He had jugular venous distention without significant jugular venous pulsations visible. No palpable lymph nodes in the supraclavicular or submandibular lymph node chains. LUNGS: Auscultation of both lung ha significant for diminished bilateral breath sounds, occasional inspiratory right lower lobe rales, no wheezing. He did have a prolonged expiratory phase. HEART: Heart sounds 1 and 2 are heard, regular rate and rhythm at the time of my evaluation. ABDOMEN: Soft, full, bowel sounds positive, nontender. No palpable hepatosplenomegaly. EXTREMITIES: Without overt digital clubbing, no cyanosis, no pedal edema. He was warm to touch. Dorsalis pedis pulses are palpable bilaterally. NEUROLOGIC: Pupils were equal, round, about 3-4 mm, reactive to light. Extraocular muscle movements were intact. He moved all 4 extremities spontaneously. Cranial nerves 2-12 are intact. SKIN: The skin was of normal turgor. No cellulitis, no rash. LABORATORY DATA: From my review are as follows: Admission white cell count 11,500, hemoglobin 15.4, hematocrit 47.1, platelet count 284. No significant band forms reported. D-dimer was within normal limits. Serum sodium 133, potassium 4.7, chloride 95, bicarbonate 20, BUN 10, creatinine 0.7, glucose was 77. Troponins, cardiac enzymes within normal limits. Liver function tests essentially within normal limits. Urinalysis was unremarkable, negative for nitrites and leukocyte esterase. Urine drug screen was unremarkable. His sodium was 138 today and the bicarbonate is up to 25. Blood cultures, no growth x 48 hours. RADIOLOGICAL DATA: Chest x-ray was done. I have reviewed the chest x-ray, also reviewed the radiologist's interpretation and I do agree with it. No real acute process. He does have significant hyperinflation with flattening of both hemidiaphragms, and tenting of the hemidiaphragm, increased interstitial markings bilaterally in a chronic interstitial fibrosis pattern. Thickened hyperinflation into consideration, there is borderline cardiomegaly in this gentleman. He may well have an element of interstitial edema. No gross pneumothorax, no gross bony fractures. Of note, I should mention that he did also complain of some chest pain at presentation in the hospital. ASSESSMENT: The assessment will be as follows: 1. Acute hypoxemic respiratory failure. 2. Acute chronic obstructive pulmonary disease exacerbation. 3. Tobacco use disorder. 4. Chest pain. 5. History of hypertension. 6. Leukocytosis. 7. Hyponatremia that is resolved now. 8. Mild metabolic acidosis at presentation. PLAN: We will continue systemic steroids, but I will begin a rapid taper. I will drop it to about 40 mg IV q.12h. at this point. Sputum will be sent for Gram stain, cultures and sensitivities. He will be put on Zithromax for empiric treatment of community-acquired pneumonia in a patient with a COPD, requiring oxygen. Aspiration precautions will be maintained. Oxygen will be weaned to keep sats greater than or equal to about 90%. Arterial blood gas will be ordered to get a better idea of the CO2 retention in this gentleman and the severity perhaps of his chronic obstructive lung disease. He will also be started on GI prophylaxis. We will continue to monitor his blood cultures and the sputum culture if he is able to cough up any. We need to avoid overhydration in this gentleman. A 2D echocardiogram will have been of benefit in this gentleman, not acutely important, however. We will go ahead an order BNP level, actually that was done at presentation. It was within normal range in the normal range. I am bothered there were about right-sided pressures also in this gentleman. I will put a 2D echo in and evaluate it and in particular if he has right-sided strain, he might still benefit from further evaluation with Dopplers to rule out completely DVT despite the normal D-dimer. He is on DVT prophylaxis. Again, will be placed on GI prophylaxis. Flu and pneumonia vaccination will be per protocol. Most importantly, I have counseled him strongly to stop smoking as he was still get benefit from that. He is going to think about it. Thank you very much for the consult. We will follow along and make further recommendations as picture progresses/becomes clearer. JOB# [id number] JASON/ROMARIO
== END 2017-09-07 19:55 | disposition home or self-care (01) | DRG 189 ==
LOC: ED 22:03 → 4A 09-05 03:44
PROVIDERS: ADMIT Internal Medicine; ATTEND Internal Medicine
DX: J96.01 Acute respiratory failure with hypoxia (principal); J44.1 Chronic obstructive pulmonary disease with (acute) exacerbation; F17.210 Nicotine dependence, cigarettes, uncomplicated; I10 Essential (primary) hypertension; Z82.49 Family history of ischemic heart disease and other diseases of the circulatory system; Z71.6 Tobacco abuse counseling
CPT/HCPCS: 36415; 71045; 80048; 80053; 80307; 81001; 82550; 82553; 83880; 84484; 85007; 85025; 85379; 87040; 94640; 96365; 96366; 96375; 99406; J1650; J1956; J2310; J2405; J2930